=== PATIENT | female | born 1965 | race African-American/Black ===

== ENCOUNTER 2016-10-05 23:28 | Emergency (ER) | payer BC ==
[2016-10-05 23:32] VITALS: BP 149/93
[2016-10-05] MEDS ORDERED: CLON0.2T PO (23:59)
[2016-10-05] MEDS ORDERED: PHEN64.8 PO (23:59)
--- NOTE | 2016-10-05 23:59 | PHYS DOC ---
Past Medical History Past Medical History: GERD, High Cholesterol, Hypertension, Seizure, Stroke Past Surgical History: Tubal ligation Smokin Pack Per Day Alcohol Use: None Drug Use: None Adult General Chief Complaint Chief Complaint: MEDICATION REFILL HPI HPI Patient is a 51 year old female who presents for medication refill. She is out of her clonidine and phenobarbital. She ran out yesterday. She is in the process of establishing a new primary care provider after her previous doctor retired. She has an appointment with a new primary care provider on October 17 at [facility]. She has been on stable doses of these medications for many years. Her last seizure was 3 years ago. She has a history of stroke and is concerned about her blood pressure being uncontrolled without her medication. Review of Systems Review of Systems Constitutional: Denies fever or chills. [] Eyes: Denies change in visual acuity, redness, or eye pain. [] HENT: Denies ear pain, nasal congestion or sore throat. [] Respiratory: Denies cough or shortness of breath. [] Cardiovascular: Denies chest pain, palpitations or edema. [] GI: Denies abdominal pain, nausea, vomiting, bloody stools or diarrhea. [] : Denies dysuria, hematuria or urinary frequency. [] Musculoskeletal: Denies back pain or joint pain. [] Integument: Denies rash or skin lesions. [] Neurologic: Denies headache, focal weakness or sensory changes. Denies seizures. Endocrine: Denies polyuria or polydipsia. [] Psych: Denies anxiety or depression. [] All systems reviewed and negative unless otherwise stated in the HPI. Allergies Allergies Allergies Coded Allergies Type Severity Reaction Last Updated Verified Sulfa (Sulfonamide Antibiotics) Allergy Severe SOB,SWELLING 10/05/16 Yes Physical Exam Physical Exam Constitutional: Well developed, well nourished, no acute distress, non-toxic appearance. [] HENT: Normocephalic, atraumatic, bilateral external ears normal, oropharynx moist, no oral exudates, nose normal. [] Eyes: PERRLA, EOMI, conjunctiva normal, no discharge. [] Neck: Normal range of motion, no tenderness, supple, no stridor. [] Cardiovascular: Heart rate regular rhythm, no murmur [] Lungs & Thorax: Bilateral breath sounds clear to auscultation [] Skin: Warm, dry, no erythema, no rash. [] Neurologic: Alert and oriented X 3, normal motor function, normal sensory function, no focal deficits noted. [] Psychologic: Affect normal, judgement normal, mood normal. [] Current Patient Data Vital Signs Vital Signs Date Time Temp Pulse Resp B/P Pulse Ox O2 Delivery O2 Flow Rate FiO2 10/05/16 23:32 98.4 106 16 149/93 97 Room Air 98.4 EKG EKG [] Radiology/Procedures Radiology/Procedures [] Course & Med Decision Making Course & Med Decision Making Pertinent Labs and Imaging studies reviewed. (See chart for details) [] Dragon Disclaimer Dragon Disclaimer This electronic medical record was generated, in whole or in part, using a voice recognition dictation system. Departure Departure Impression: Primary Impression: Medication refill Disposition: HOME, SELF-CARE Condition: STABLE Patient Instructions: Medication Refill, Emergency Department Additional Instructions: You have been seen for a refill of your medications. Please follow-up with your primary care doctor as soon as possible to receive a new prescription with refills. Return to the emergency department if you have any new or concerning symptoms. Scripts Phenobarbital 64.8 Mg [id number] Mg PO BID #60 Prov:NISSA BREWER 10/05/16 Clonidine Hcl 0.2 Mg Tablet1 Tab PO BID #60 TAB Prov:NISSA BREWER 10/05/16 NISSA BREWER Oct 05, 2016 23:59
== END 2016-10-06 00:05 | disposition home or self-care (01) ==
LOC: ER 23:28
DX: Z76.0 Encounter for issue of repeat prescription (principal); I10 Essential (primary) hypertension; E78.00 Pure hypercholesterolemia, unspecified; K21.9 Gastro-esophageal reflux disease without esophagitis; F17.210 Nicotine dependence, cigarettes, uncomplicated; Z88.2 Allergy status to sulfonamides; Z86.73 Personal history of transient ischemic attack (TIA), and cerebral infarction without residual deficits
CPT/HCPCS: 99283

== ENCOUNTER → 2017-01-12 | Outpatient (CLI) | payer SELFPAY ==
[~2017-01-12] MED LIST: CLON0.2T PO; PHEN64.8 PO
[2017-01-12 13:57] LABS: BASO # 0.1 x10^3/uL (0.0-0.2); BASO % 0 % (0-3); EOS % 2 % (0-3); HEMATOCRIT 39.9 % (36.0-47.0); HEMOGLOBIN 12.5 g/dL (12.0-15.5); LYMPH # 2.4 x10^3/uL (1.0-4.8); LYMPH % 20 % (24-48); MEAN CORPUSCULAR HEMOGLOBIN 26 pg (25-35); MEAN CORPUSCULAR HGB CONC 31 g/dL (31-37); MEAN CORPUSCULAR VOLUME 82 fL (79-100); MONO % 5 % (0-9); NEUT % 73 % (31-73); PLATELET COUNT 232 x10^3/uL (140-400); WHITE BLOOD COUNT 12.2 x10^3/uL (4.0-11.0)
[2017-01-12 14:16] LABS: ALBUMIN 3.8 g/dL (3.4-5.0); ALBUMIN/GLOBULIN RATIO 0.8 (1.0-1.7); ALK PHOS 121 U/L (46-116); ALT (SGPT) 15 U/L (14-59); ANION GAP 4 (6-14); AST (SGOT) 17 U/L (15-37); BLOOD UREA NITROGEN 14 mg/dL (7-20); BUN/CREATININE RATIO 12 (6-20); CALCIUM 9.3 mg/dL (8.5-10.1); CARBON DIOXIDE 31 mmol/L (21-32); CHLORIDE 101 mmol/L (98-107); CHOLESTEROL 219 mg/dL (0-200); CREATININE 1.2 mg/dL (0.6-1.0); GFR 57.5; GLUCOSE 114 mg/dL (70-99); HDLC 42 mg/dL (40-60); NON-HDL CHOLESTEROL 177 mg/dL (0-129); POTASSIUM 4.4 mmol/L (3.5-5.1); SODIUM 136 mmol/L (136-145); TOTAL BILIRUBIN 0.2 mg/dL (0.2-1.0); TOTAL PROTEIN 8.8 g/dL (6.4-8.2); TRIGLYCERIDES 188 mg/dL (0-150)
[2017-01-12 14:17] LABS: CHOLESTEROL/HDL RATIO 5.2
[2017-01-12 14:43] LABS: PHENOBARB 14.1 mcg/mL (15.0-40.0)
== END | disposition home or self-care (01) ==
LOC: LAB 12:14
PROVIDERS: ATTEND Surgery
DX: R56.9 Unspecified convulsions (principal); R73.9 Hyperglycemia, unspecified; E78.5 Hyperlipidemia, unspecified
CPT/HCPCS: 36415; 80053; 80061; 80184; 83036; 85027

== ENCOUNTER 2017-12-03 18:21 | Emergency (ER) | payer SELFPAY ==
[2017-12-03] MEDS: cefTRIAXone IM 1 GM VIAL IM (19:35)
== END 2017-12-03 19:40 | disposition home or self-care (01) ==
LOC: ER 18:21
DX: L03.114 Cellulitis of left upper limb (principal); I50.9 Heart failure, unspecified; K21.9 Gastro-esophageal reflux disease without esophagitis; E78.00 Pure hypercholesterolemia, unspecified; Z86.73 Personal history of transient ischemic attack (TIA), and cerebral infarction without residual deficits; Z98.51 Tubal ligation status
CPT/HCPCS: 96372; 99283; J0696